=== PATIENT | female | born 2005 | race Two or more races ===

== ENCOUNTER 2024-04-14 07:57 | Emergency (ER) | payer SELFPAY ==
[2024-04-14 08:04] VITALS: BP 126/84; PULSE 84; RESP 18; TEMP 98; BMI 25.4
[2024-04-14 09:08] LABS: THROAT:GRP A STREP NOT DETECTED (NOTDETECTED)
[2024-04-14 10:18] LABS: EPI CELLS >36 /uL (0-25.1); HYALINE CASTS 0 /uL (0-3.1); URINE APPEARANCE CLEAR; URINE BACTERIA 8 /uL (0-1359); URINE BILIRUBIN NEGATIVE (NEGATIVE); URINE COLOR YELLOW; URINE GLUCOSE (UA) NEGATIVE (NEGATIVE); URINE KETONE NEGATIVE (NEGATIVE); URINE LEUK ESTERASE NEGATIVE (NEGATIVE); URINE NITRITE NEGATIVE (NEGATIVE); URINE PROTEIN NEGATIVE (NEGATIVE); URINE RBC 152 /uL (0-23.9); URINE UROBILINOGEN 0.2 mg/dL (0.2-1.0); URINE WBC 18 /uL (0-25.8)
== END 2024-04-14 11:06 | disposition home or self-care (01) ==
LOC: JER 07:57 → JERFT 07:57
DX: U07.1 COVID-19 (principal); R05.9 Cough, unspecified; R09.81 Nasal congestion; R50.9 Fever, unspecified; J02.9 Acute pharyngitis, unspecified; R59.0 Localized enlarged lymph nodes
CPT/HCPCS: 0241U-QW; 81003; 84703; 87086; 87651; 99283-25